=== PATIENT | male | born 1955 | race Caucasian/White ===

== ENCOUNTER → 2017-08-07 | Day surgery (SDC) | payer BC ==
[2017-08-06 14:37] LABS: BASOPHILS % 0.5 % (0.0-1.0); EOSINOPHILS # (AUTO) 0.1 (0.0-0.4); EOSINOPHILS % 1.4 % (0.0-6.0); HEMATOCRIT 45.7 % (38.2-49.6); HEMOGLOBIN 15.8 g/dL (14.0-18.0); LYMPHOCYTES # (AUTO) 1.8 (1.0-3.2); LYMPHOCYTES % 22.9 % (18.0-39.1); MEAN CORPUSCULAR HEMOGLOBIN 33.8 pg (28-32); MEAN CORPUSCULAR HGB CONC 34.6 g/dL (31-35); MEAN CORPUSCULAR VOLUME 97.6 fL (81-99); MONOCYTES # (AUTO) 0.8 (0.2-0.8); MONOCYTES % 10.2 % (4.4-11.3); NEUTROPHILS # (AUTO) 5.1 (2.1-6.9); NEUTROPHILS % 64.6 % (38.7-80.0); PLATELET COUNT 203 x10e3/uL (140-360); RED BLOOD COUNT 4.68 x10e6/uL (4.3-5.7); RED CELL DISTRIBUTION WIDTH 12.7 % (11.7-14.4)
[2017-08-06 14:46] LABS: INR 1.09; PROTHROMBIN TIME 13.3 seconds (11.9-14.5)
[2017-08-06 14:53] LABS: ALANINE AMINOTRANSFERASE 29 IU/L (0-55); ALBUMIN 3.6 g/dL (3.5-5.0); ALBUMIN/GLOBULIN RATIO 0.9 (0.8-2.0); ALKALINE PHOSPHATASE 52 IU/L (40-150); ANION GAP 14.1 mmol/L (8-16); BLOOD UREA NITROGEN 12 mg/dL (7-26); BUN/CREATININE RATIO 11 (6-25); CALCIUM 9.4 mg/dL (8.4-10.2); CARBON DIOXIDE 24 mmol/L (22-29); CHLORIDE 106 mmol/L (98-107); CHOLESTEROL 152 MD/DL (0-199); CREATININE, SERUM 1.14 mg/dL (0.72-1.25); EST GLOMERULAR FILTRATION RATE > 60 ML/MIN (60-); GLUCOSE 108 mg/dL (74-118); HDL CHOLESTEROL 51 MG/DL (40-60); LDL CHOLESTEROL 75 MG/DL (60-130); POTASSIUM 4.1 mmol/L (3.5-5.1); SODIUM 140 mmol/L (136-145); TRIGLYCERIDES 129 MG/DL (0-149)
[~2017-08-07] VITALS: Ht 177.8 cm; Wt 114.3 kg
[2017-08-07] VITALS (11 sets, daily range): BP systolic 103–163; BP diastolic 76–105
[~2017-08-07] MED LIST: ASPIRIN81 MG PO; ATORVASTATIN CA20 MG PO; BIVALIRUDIN 250 MG/VIAL IV ONE; CLOPIDOGREL75 MG PO; FENTANYL CITRATE/PF 100MCG/2 ML INJ ONE; HEPARIN SOD (PORCINE) 1000 UNIT/ML 30ML ONE; HEPARIN SOD/SOD CHLORIDE 1,000 ML ONE; IOPAMIDOL 370 MG/ML 200 ML INFUS..BTL INJ ONE; LIDOCAINE HCL 2% LOCAL 20 ML VIAL ONE; METOPROLOL SUCC25 MG PO; MIDAZOLAM HCL 2 MG/2 ML VIAL ONE; MONTELUKAST SOD10 MG PO; NITROGLYCERIN/D5W 200 MCG/ML 250 ML ONE; PRASUGREL 10 MG TAB ONE; SODIUM CHLORIDE 0.9% 1000ML 1,000 ML ONE; SODIUM CHLORIDE 0.9% 50ML 50 ML ONE; VERAPAMIL HCL 2.5 MG/ML 2 ML VIAL ONE
--- NOTE | 2017-08-10 08:55 | Operative Report ---
DATE OF PROCEDURE: August 07, 2017 INDICATIONS: Coronary artery disease with abnormal stress test and unstable angina. PROCEDURES PERFORMED 1. Left heart catheterization. 2. Selective coronary angiography. 3. Percutaneous transluminal coronary angioplasty and stent placement to the right coronary artery for chronic total occlusion. 4. Deployment of right wrist transradial band. COMPLICATIONS: None. RECOMMENDATIONS: Aggressive medical therapy and lifestyle modifications, including dual antiplatelet therapy for life. Access obtained in the right radial artery. A 5-Turkmen sheath was placed. Diagnostic coronary angiogram revealed patent stents in the left anterior descending and circumflex circulations. Mild disease in the remaining left coronary systems. Grade 3/4 collaterals supplied the right posterior descending artery from the left coronary circulation. The right coronary artery had a proximal 50% stenosis, mid 30% to 50% stenosis and was completely occluded in its distal portion. A decision was made to intervene on the right coronary artery. The sheath was exchanged to a 6-Turkmen slender sheath. Patient received intravenous Angio-Max and oral Effient for anticoagulation. The right coronary artery was cannulated using a JR4 6-Turkmen guiding catheter. A Whisper wire was advanced across the lesion, and once the lesion was crossed, the wire was exchanged to a [place] wire. Pre-dilatation with a 1.5-mm balloon following which a single 2.75 x 28 mm [employer] Synergy stent was deployed at 14 atmospheres. Excellent end result. MEERA-III flow. No complications. There was 50% to 70% stenosis of a small ostial right posterior descending artery, which was jailed within the stent proximal right coronary artery. Intervention was not performed. Right wrist TR band applied. Patient discharged home same day. Job#: [id number]
== END | disposition home or self-care (01) ==
LOC: CATH LAB 09:10
PROVIDERS: ATTEND Internal Medicine Interventional Cardiology
DX: I25.110 Atherosclerotic heart disease of native coronary artery with unstable angina pectoris (principal); R94.39 Abnormal result of other cardiovascular function study; G47.33 Obstructive sleep apnea (adult) (pediatric); Z95.5 Presence of coronary angioplasty implant and graft; Z01.812 Encounter for preprocedural laboratory examination; Z79.82 Long term (current) use of aspirin; Z79.02 Long term (current) use of antithrombotics/antiplatelets; Z68.38 Body mass index [BMI] 38.0-38.9, adult; Z82.49 Family history of ischemic heart disease and other diseases of the circulatory system
CPT/HCPCS: 36415; 80053; 80061; 85025; 85610; 92943; 93458; C1874; C1887; J0583; J1644; J2001; J2250; J7030; Q9967; 36140; 77002; 92920; C9600